=== PATIENT | female | born 1995 ===

== ENCOUNTER 2017-01-10 09:53 | Emergency (ER) | payer OTHER ==
[2017-01-10 09:58] VITALS: O2SAT 100
[2017-01-10] MEDS ORDERED: Iohexol 240 (50 ml) PO STA (10:23)
[2017-01-10] MEDS ORDERED: Sodium Chloride 0.9% 1,000 ML IV STA (10:23)
--- NOTE | 2017-01-10 10:39 | C.PDOC ---
History Of Present Illness 21 y/o female presents to the ED with complains of abdominal pain. Pt reports typically has painful menses with frequent urination. Her last menses ended but still has RLQ abdominal pain. Pt denies fever, nausea, vomiting, diarrhea , or any other complaints. Time Seen by Provider: 01/10/17 10:09 Chief Complaint (Nursing): Abdominal Pain History Per: Patient History/Exam Limitations: no limitations Onset/Duration Of Symptoms: Days Current Symptoms Are (Timing): Still Present Severity: Moderate Location Of Pain/Discomfort: RLQ Quality Of Discomfort: "Pain" Associated Symptoms: denies: Fever, Nausea, Vomiting Exacerbating Factors: None Alleviating Factors: None Recent travel outside of the [place]: No Abnormal Vaginal Bleeding: No Past Medical History Reviewed: Historical Data, Nursing Documentation, Vital Signs Vital Signs: Last Vital Signs Temp 98.5 F 01/10/17 15:49 Pulse 91 H 01/10/17 15:49 Resp 18 01/10/17 15:49 BP 110/74 01/10/17 15:49 Pulse Ox 100 01/10/17 15:49 Family History: States: Unknown Family Hx - Social History Hx Alcohol Use: No Hx Substance Use: No - Immunization History Hx Tetanus Toxoid Vaccination: No Hx Influenza Vaccination: No Review Of Systems Except As Marked, All Systems Reviewed And Found Negative. Constitutional: Negative for: Fever Gastrointestinal: Positive for: Abdominal Pain. Negative for: Nausea, Vomiting , Diarrhea Genitourinary: Negative for: Vaginal Bleeding Physical Exam - Physical Exam Appears: Non-toxic, No Acute Distress Skin: Warm, Dry, No Rash Head: Atraumatic, Normacephalic Neck: Normal ROM, Supple Chest: Symmetrical Cardiovascular: Rhythm Regular, No Murmur Respiratory: Normal Breath Sounds, No Rales, No Rhonchi, No Wheezing Gastrointestinal/Abdominal: Soft, Tenderness (RLQ, LLQ), No Guarding, No Rebound Extremity: Normal ROM Extremity: Bilateral: Atraumatic Neurological/Psych: Oriented x3, Normal Speech, Normal Cognition ED Course And Treatment - Laboratory Results Result Diagrams: 01/10/17 10:39 01/10/17 10:39 O2 Sat by Pulse Oximetry: 100 (on room air) Pulse Ox Interpretation: Normal - CT Scan/US CT abdomen/pelvis Other Rad Studies (CT/US): Read By Radiologist, Radiology Report Reviewed CT/US Interpretation: Accession No. : [id number]. Patient Name / ID : SURAJ PEDERSON / [id number]. Exam Date : 01/10/2017 12:11:00 ( Approved ). Study Comment : Sex / Age : F / 21Y. Creator : Rona Reaves. Dictator : Rona Reaves. Corrosion Control Specialist : Nutrition Faculty Member : Rona Reaves. Approver2 : Report Date : 01/10/2017 13:05:47. My Comment : . PROCEDURE: CT Abdomen and Pelvis with contrast. HISTORY: RLQ pain, guarding/ rebound. COMPARISON: None. TECHNIQUE: Axial and reformatted coronal and sagittal CT images of the abdomen and pelvis were obtained after IV and oral contrast administration. Contrast dose: 100 mL Visipaque 320. Radiation dose: Total exam DLP = 586.05 mGy-cm. This CT exam was performed using one or more of the following dose reduction techniques: Automated exposure control, adjustment of the mA and/or kV according to patient size, and/or use of iterative reconstruction technique. FINDINGS: LOWER THORAX: Unremarkable. LIVER: Unremarkable. No gross lesion or ductal dilatation. GALLBLADDER AND BILE DUCTS: Unremarkable. PANCREAS: Unremarkable. No gross lesion or ductal dilatation. SPLEEN: Unremarkable. ADRENALS: Unremarkable. No mass. KIDNEYS AND URETERS: Unremarkable. No hydronephrosis. No solid mass. VASCULATURE: Unremarkable. No aortic aneurysm. BOWEL: Xzmb-fl-ptxterrt constipation. No evidence of bowel obstruction. Mild gastric wall thickening. Correlate clinically for gastritis. APPENDIX: No CT evidence of appendicitis. PERITONEUM: Unremarkable. No free fluid. No free air. LYMPH NODES: Unremarkable. No enlarged lymph nodes. BLADDER: Unremarkable. REPRODUCTIVE: Unremarkable. BONES: No acute fracture. OTHER FINDINGS: None. IMPRESSION: No evidence of appendicitis. Lmgg-ow-pjmuergf constipation. Mildly enlarged mesenteric lymph nodes suspicious for mesenteric adenitis. Slightly thick gastric wall. Correlate for gastritis. Progress Note: Plan: CT abd/pelvis, labs, UA, IV fluids, morphine. CT is neg for any acute pathology, positive for constipatient. Patient was d/c home on laxatives with Clinic follow up. she was instructed to return to Ed immediately if feel worse. Disposition - Disposition Referrals: [facility] [Outside] Disposition: HOME/ ROUTINE Disposition Time: 15:31 Condition: STABLE Additional Instructions: Follow up in Clinic within 1-2 days. Return to ED if feel worse. Prescriptions: Docusate [Colace] 100 mg PO BID #30 cap Lactulose 30 ml PO DAILY PRN #600 ml PRN Reason: Constipation Instructions: Abdominal Pain (ED), Constipation (ED) Print Language: MARSHALLESE - Clinical Impression Clinical Impression: Abdominal pain, Constipation - PA / SUPERVISOR P[employer]ER[employer] / Resident Statement MD/DO has reviewed & agrees with the documentation as recorded. - Scribe Statement The provider has reviewed the documentation as recorded by the Josemanuel Chapa All medical record entries made by the Josemanuel were at my direction and personally dictated by me. I have reviewed the chart and agree that the record accurately reflects my personal performance of the history, physical exam, medical decision making, and the department course for this patient. I have also personally directed, reviewed, and agree with the discharge instructions and disposition.
[2017-01-10 10:45] LABS: BASO # 0.1 K/uL (0.0-0.2); BASO % 0.5 % (0.0-2.0); EOS # 0.1 K/uL (0.0-0.7); EOS % 0.7 % (0.0-4.0); HEMATOCRIT 36.7 % (34.0-47.0); LYMPH # 2.2 K/uL (1.0-4.3); LYMPH % 22.5 % (20.0-40.0); MEAN CELL VOLUME 86.8 fL (81.0-99.0); MEAN CORPUSCULAR HEMOGLOBIN 28.6 pg (27.0-31.0); MEAN CORPUSCULAR HGB CONC 32.9 g/dL (33.0-37.0); MEAN PLATELET VOLUME 8.5 fL (7.2-11.7); MONO # 0.6 K/uL (0.0-0.8); MONO % 5.7 % (0.0-10.0); RED CELL DISTRIBUTION WIDTH 13.2 % (11.5-14.5)
[2017-01-10 10:46] LABS: RBC URINE < 1 /hpf (0-3); URINE BILIRUBIN NEGATIVE (NEGATIVE); URINE BLOOD NEGATIVE (NEGATIVE); URINE COLOR Yellow (YELLOW); URINE GLUCOSE (UA) NORMAL (Normal); URINE KETONE NEGATIVE (NEGATIVE); URINE LEUKOCYTE ESTERASE NEG Leu/uL (Negative); URINE PROTEIN NEGATIVE (NEGATIVE); URINE UROBILINOGEN NORMAL mg/dL (0.2-1.0); WBC URINE 1 /hpf (0-5)
[2017-01-10] MEDS ORDERED: Iohexol 240 (50 ml) ONE (10:46)
[2017-01-10] MEDS ORDERED: Sodium Chloride 0.9% 1,000 ML ONE (10:50)
[2017-01-10 10:54] LABS: CHLORIDE 94 mmol/L (98-107)
[2017-01-10 10:55] LABS: SODIUM 138 mmol/L (132-148)
[2017-01-10 10:57] LABS: ALB/GLOB RATIO 1.3 (1.0-2.1); ALKALINE PHOSPHATASE 64 U/L (38-126); ALT/SGPT 49 U/L (9-52); AST/SGOT 54 U/L (14-36); BILIRUBIN,TOTAL 0.3 mg/dL (0.2-1.3); BLOOD UREA NITROGEN 12 mg/dL (7-17); CARBON DIOXIDE 27 mmol/L (22-30); GFR AFRICAN-AMERICAN > 60; GLUCOSE,RANDOM 101 mg/dL (65-105); TOTAL PROTEIN 8.3 g/dL (6.3-8.3)
[2017-01-10] MEDS ORDERED: Iodixanol 320 MG/ML 100 ML BOTTLE IV ONE (11:50)
--- NOTE | 2017-01-10 13:07 | CT ---
PROCEDURE: CT Abdomen and Pelvis with contrast HISTORY: RLQ pain, guarding/rebound COMPARISON: None. TECHNIQUE: Axial and reformatted coronal and sagittal CT images of the abdomen and pelvis were obtained after IV and oral contrast administration. Contrast dose: 100 mL Visipaque 320 Radiation dose: Total exam DLP = 586.05 mGy-cm. This CT exam was performed using one or more of the following dose reduction techniques: Automated exposure control, adjustment of the mA and/or kV according to patient size, and/or use of iterative reconstruction technique. FINDINGS: LOWER THORAX: Unremarkable. LIVER: Unremarkable. No gross lesion or ductal dilatation. GALLBLADDER AND BILE DUCTS: Unremarkable. PANCREAS: Unremarkable. No gross lesion or ductal dilatation. SPLEEN: Unremarkable. ADRENALS: Unremarkable. No mass. KIDNEYS AND URETERS: Unremarkable. No hydronephrosis. No solid mass. VASCULATURE: Unremarkable. No aortic aneurysm. BOWEL: Ouer-pl-iknvkche constipation. No evidence of bowel obstruction. Mild gastric wall thickening. Correlate clinically for gastritis. APPENDIX: No CT evidence of appendicitis. PERITONEUM: Unremarkable. No free fluid. No free air. LYMPH NODES: Unremarkable. No enlarged lymph nodes. BLADDER: Unremarkable. REPRODUCTIVE: Unremarkable. BONES: No acute fracture. OTHER FINDINGS: None. IMPRESSION: No evidence of appendicitis. Yyfi-rv-lqpxqnnw constipation. Mildly enlarged mesenteric lymph nodes suspicious for mesenteric adenitis. Slightly thick gastric wall. Correlate for gastritis.
[2017-01-10] MEDS ORDERED: Magnesium Hydroxide Susp 30 ml UD PO STA (13:19)
[2017-01-10] MEDS ORDERED: Magnesium Hydroxide Susp 30 ml UD ONE (13:33)
[2017-01-10 15:51] VITALS: BP 110/74; PULSE 91; RESP 18; TEMP 98.5
== END 2017-01-10 15:51 | disposition home or self-care (01) ==
LOC: C.ER 09:53
DX: K59.00 Constipation, unspecified (principal)
CPT/HCPCS: 74177; 80053; 81001; 83690; 84703; 85025; 96361; 96374; 99285; J2270; J7040; Q9966; Q9967

== ENCOUNTER 2018-05-15 22:20 | Inpatient (IN) | payer MEDICAID, OTHER ==
[2018-05-15 23:03] VITALS: BMI 34.0
[2018-05-15] MEDS ORDERED: Lactated Ringer's 1,000 ML IV ONE ×2 (23:32)
[2018-05-15] MEDS ORDERED: cefOXitin IV 2 gm in Dextrose 2 GM/50 ML BAG IVPB ONE (23:32)
[2018-05-15] MEDS ORDERED: Lactated Ringer's 1,000 ML IV SCH (23:45)
[2018-05-15 23:57] LABS: BASO % 0.3 % (0.0-2.0); EOS # 0.1 K/uL (0.0-0.7); EOS % 0.9 % (0.0-4.0); HEMOGLOBIN 11.5 g/dL (11.0-16.0); LYMPH # 3.2 K/uL (1.0-4.3); LYMPH % 26.9 % (20.0-40.0); MEAN CORPUSCULAR HEMOGLOBIN 30.9 pg (27.0-31.0); MEAN CORPUSCULAR HGB CONC 34.3 g/dL (33.0-37.0); MEAN PLATELET VOLUME 9.9 fL (7.2-11.7); MONO # 0.9 K/uL (0.0-0.8); MONO % 7.1 % (0.0-10.0); NEUT # 7.8 K/uL (1.8-7.0); NEUT % 64.8 % (50.0-75.0); NRBC % 0.1 % (0.0-2.0); RBC 3.73 Mil/uL (3.80-5.20); RED CELL DISTRIBUTION WIDTH 13.9 % (11.5-14.5)
[2018-05-16] MEDS ORDERED: Morphine 1 mg/ml preservative-free Inj(Duramorph) ONE (00:01)
[2018-05-16] MEDS ORDERED: cefOXitin IV 2 gm in Saline 2 GM/50 ML BAG IVPB ONE (00:06)
[2018-05-16 00:11] LABS: SQUAMOUS EPITHIAL 3 /hpf (0-5); URINE BILIRUBIN NEGATIVE (NEGATIVE); URINE BLOOD NEGATIVE (NEGATIVE); URINE CLARITY Clear (Clear); URINE COLOR Yellow (YELLOW); URINE GLUCOSE (UA) NORMAL (Normal); URINE LEUKOCYTE ESTERASE NEG Leu/uL (Negative); URINE PROTEIN NEGATIVE (NEGATIVE); URINE UROBILINOGEN NORMAL mg/dL (0.2-1.0)
[2018-05-16 00:13] LABS: BARBITURATES, UR NEGATIVE (NEGATIVE); BENZODIAZEPINES, UR NEGATIVE (NEGATIVE); OPIATES, UR NEGATIVE (NEGATIVE); PHENCYCLIDINE, UR NEGATIVE (NEGATIVE)
[2018-05-16 00:19] LABS: ALB/GLOB RATIO 1.2 (1.0-2.1); ALBUMIN 4.1 g/dL (3.5-5.0); ALT/SGPT 16 U/L (9-52); AST/SGOT 19 U/L (14-36); BLOOD UREA NITROGEN 7 mg/dL (7-17); CALCIUM 9.3 mg/dl (8.6-10.4); GFR AFRICAN-AMERICAN > 60; GFR NON-AFRICAN AMERICAN > 60
[2018-05-16] MEDS ORDERED: Oxytocin 20 units in LR 2,000 ML IV ONE (00:26)
[2018-05-16 00:50] LABS: HEPATITIS B SURFACE AG Negative (NEGATIVE)
[2018-05-16] MEDS ORDERED: Oxytocin 10 Units/ml Inj ONE (00:56)
[2018-05-16] MEDS ORDERED: DiphenhydrAMINE 50 mg/ml Inj IVP PRN (02:47)
[2018-05-16] MEDS ORDERED: HYDROmorphone 0.5 mg/0.5 ml ISec IVP PRN (02:47)
--- NOTE | 2018-05-16 02:48 | PCM.SURG1 ---
Surgeon's Initial Post Op Note - Surgeon's Notes Surgeon: Belem James MD Storekeeper Steward: Rico Morfin MD Type of Anesthesia: Spinal Anesthesia Administered By: Nilson Wilkins DO Pre-Operative Diagnosis: 36 weeks 2 days, Twin gestation ( Breeech/Breeech), labor; h/o cerclage; previous C/S Operative Findings: Twin A: female, double footling breech; 4lb 14oz, loose nuchal cord x 1; 's 7/9. Twin B: female, Iain breech, 4lb 14oz, 's 4 /9. Normal uterus; normal fallopian tubes and ovaries, bilaterally Post-Operative Diagnosis: Same Operation Performed: Removal of cerclage; repeat LTCS Specimen/Specimens Removed: Placenta Estimated Blood Loss: EBL {In ML}: 800 (U.O. 200 mL; IVFs 2,000 mL LR first 1L with 40 Units pitocin)) Blood Products Given: N/A Drains Used: No Drains Post-Op Condition: Good Date of Surgery/Procedure: 05/16/18 Time of Surgery/Procedure: 02:49
--- NOTE | 2018-05-16 03:23 | OBDS ---
DELIVERY PERSONNEL Nurse Vp Software Support Certified: N/A Delivery Doctor: Josh James MD Scrub Nurse: Enid Rodney OBT Narrow Gauge Operator: Anjelica Cohen RN Anesthesiologist: DR POSEY Tutor: SAME Resident: N/A MATERNAL INFORMATION Delivery Anesthesia: Spinal Medications in Delivery: pitocin 40 units in 1L LR Estimated Blood Loss (ml): 800 Placenta Cultured: Yes Maternal Complications: None Provider Comments: Uncomplcated repeat LTCS with delivery of live twin female infants Twin A: double Footling Breech, breech extraction. LSA position, weight 4lb 14oz, 's 7/9 Twin B: Iain Breech, breech extraction, LSA position, weight 4lb 14oz, 's 4/9 Patient tolerated procedure well. Infant's to [facility] for further montoring. EBL 800mL IVFs 2000mL, 1st llitre wiht 40 units pitocin U.O. 200 mL LABOR SUMMARY EDC: 06/11/2018 00:00 No. Babies in Womb: 2 Attempted: No Labor Anesthesia: None LABOR INFORMATION Reason for Induction: Not Applicable Onset of Labor: 05/15/2018 20:00 Group B Beta Strep: UNKNOWN Antibiotics # of Doses: #1 MEMBRANES Membranes Rupture Method: Artificial Rupture of Membranes: 05/16/2018 01:32 Length of Rupture (hrs): 0.00 Amniotic Fluid Color: Clear Amniotic Fluid Amount: Moderate Amniotic Fluid Odor: Normal STAGES OF LABOR Stage 3 hrs: 0 Stage 3 min: 4 Total Time in Labor hrs: 5 Total Time in Labor min: 36 CSECTION DELIVERY Primary Indication: PREVIOUS C/SECTION X1, IN LABOR Secondary Indication: Multiple Gestation, BREECH PRESENTATION CSection Urgency: Emergency CSection Incidence: Repeat Labor: Labor Elective: N/A CSection Incision: Lower Uterine Transverse BABY A INFORMATION Delivery Date/Time: 05/16/2018 01:32 Method of Delivery: Born in Route : No : N/A Forceps: N/A Vacuum Extraction: N/A Shoulder Dystocia : No SHOULDER DYSTOCIA BABY A Delivery Date/Time: 05/16/2018 01:32 PRESENTATION/POSITION BABY A Presentation: Breech PLACENTA INFORMATION BABY A Placenta Delivery Time : 05/16/2018 01:36 Placenta Method of Delivery: Manual Removal Placenta Status: Delivered SCORES BABY A Heart Rate 1 min: >100 bpm Resp Effort 1 min: Good Cry Reflex Irritability 1 min: Grimace Muscle Tone 1 min: Some Flexion of Extremities Color 1 min: Body [place], Extremities Blue SCORE 1 MIN: 7 Heart Rate 5 min: >100 bpm Resp Effort 5 min: Good Cry Reflex Irritability 5 min: Cough or Sneeze or Pulls Away Muscle Tone 5 min: Active Motion Color 5 min: Body [place], Extremities Blue SCORE 5 MIN: 9 INFORMATION BABY A Gestational Age at Delivery: 36.2 Gestational Status: Outcome : Liveborn Infant Condition : Stable Infant Sex: Female IDENTIFICATION/MEDS BABY A ID Band Number: [id number] ID Band Location: Left Leg; Left Arm Sensor Applied: Yes Sensor Number: [id number] Sensor Location : Cord Clamp Vitamin K Given : Not Given Erythromycin Given: Not Given WEIGHT/LENGTH BABY A Infant Birthweight (gms): 2210 Infant Weight (lb): 4 Infant Weight (oz): 14 Length Inches: 17.25 Infant Length cms: 43.8 CORD INFORMATION BABY A No. Cord Vessels: 3 Nuchal Cord : N/A Cord Blood Taken: Yes Infant Suction: None ASSESSMENT BABY A Infant Complications: Other Infant Complications Other: Physical Findings at Delivery: Within Normal Limits Infant Respirations: Appears Normal Progressive Care Nurse/ALS Called : No Infant Care By: dr odonnell Transferred To: Nursery BABY B INFORMATION Delivery Date/Time: 05/16/2018 01:33 Method of Delivery : Born in Route : No : N/A Forceps : N/A Vacuum Extraction: N/A Shoulder Dystocia : No SHOULDER DYSTOCIA BABY B Infant Delivery Date/Time: 05/16/2018 01:33 PRESENTATION/POSITION BABY B Presentation : Breech Breech Position: Iain ROM/PLACENTA INFO BABY B Rupture of Membranes: 05/16/2018 01:32 Length of Rupture (hrs): 0.02 Placenta Delivery Time : 05/16/2018 01:36 Placenta Method of Delivery: Manual Removal Placental Status : Delivered SCORES BABY B Heart Rate 1 min: >100 bpm Resp Effort 1 min: Absent Reflex Irritability 1 min: No Response Muscle Tone 1 min: Some Flexion of Extremities Color 1 min: Body [place], Extremities Blue Resuscitation Effort 1 min: Tactile Stimulation; Oxygen SCORE 1 MIN: 4 Heart Rate 5 min: >100 bpm Resp Effort 5 min: Good Cry Reflex Irritability 5 min: Cough or Sneeze or Pulls Away Muscle Tone 5 min: Active Motion Color 5 min: Body [place], Extremities Blue SCORE 5 MIN: 9 INFORMATION BABY B Gestational Age at Delivery: 36.2 Gestational Status : Outcome : Liveborn Condition : Fair Sex : Female IDENTIFICATION/MEDS BABY B ID Band Number : [id number] Sensor Number : [id number] WEIGHT/LENGTH BABY B Infant Birthweight (gms): 2210 Infant Weight (lb) : 4 Weight (oz): 14 Infant Length Inches: 17.50 Length cms: 44.45 CORD INFORMATION BABY B No. Cord Vessels : 3 Nuchal Cord : N/A Cord Blood Taken : Yes Infant Suction : Mouth; Nose ASSESSMENT BABY B Infant Complications : Other Complications Other: Physical Findings at Delivery: Within Normal Limits Infant Respirations : Grunting; Intercostal Retractions Progressive Care Nurse/ALS Called : No Infant Care By : dr odonnell Transfer To: [facility] RESUSCITATION BABY B Resuscitation Effort: Tactile Stimulation; Oxygen
[2018-05-16] MEDS ORDERED: DiphenhydrAMINE 50 mg/ml Inj ONE (06:08)
[2018-05-16] MEDS: Simethicone 80 mg Chewtab PO SCH ×3 (09:55→22:59)
--- NOTE | 2018-05-16 15:06 | OP ---
Copied To: Belem James MD Attending MD: Belem James MD PROCEDURE DATE: 05/16/2018 SURGEON: Belem James MD RAMP AGENT: Rico Wetzel MD ANESTHESIOLOGIST: Nilson Wilkins DO ANESTHESIA TYPE: Spinal. PREOPERATIVE DIAGNOSES: A 36 weeks' and 2 days twin gestation, diamnionic- dichorionic, Breech-Breech presentation; labor, history of cerclage; previous Caesarean section. POSTOPERATIVE DIAGNOSES: A 36 weeks and 2 days twin gestation, diamnionic- dichorionic Breech-Breech presentation; labor, history of cerclage; previous Caesarean section. OPERATION PERFORMED: Repeat transverse lower segment Caesarean section. OPERATIVE FINDINGS: Twin A: female in a double footling Breech, left sacrum anterior position, 4 pounds 14 ounces with loose nuchal cord x1. 's were 7 and 9 at 1 and 5 minutes respectively. Twin B: female , Iain breech, left sacrum anterior position 4 pounds 14 ounces. 's were 4 and 9 at 1 and 5 minutes respectively. Normal uterus; normal fallopian tubes and ovaries bilaterally. SPECIMENS: Placenta. ESTIMATED BLOOD LOSS: 800 mL. URINE OUTPUT: 200 mL clear urine. INTRAVENOUS FLUIDS: 2,000 mL of Lactated Ringer. The first 1 liter had 40 units of Pitocin. BLOOD PRODUCTS GIVEN: None. COMPLICATIONS: None. DESCRIPTION OF PROCEDURE: The patient was taken to the operating room after having obtained informed consent for the anticipated procedure. This included a discussion of possible risks and complications including but not limited to infection requiring antibiotics, hemorrhage requiring blood transfusion, repair of any damage to internal organs, Caesarean hysterectomy. The patient's questions were answered. Consents were witnessed, dated, signed, and placed in the chart. The patient received Mefoxin 2 grams prior to being escorted to the operating room. A Harris had been inserted under sterile conditions prior to being escorted to the operating room. The patient was then escorted to the operating room. She was placed on operating room table in sitting position where spinal anesthesia was administered without incident. The patient was repositioned immediately in a supine position. She was then placed in [facility]-cane stirrups in the dorsal lithotomy position for removal of cerclage. This was done under direct visualization and two loops were retrieved apparently. Upon removing the cerclage, the patient was noted to be 3 cm dilated, 70% effaced, and the amniotic sac was palpated. The patient was then repositioned in a supine straight leg position. The abdomen was prepped and she was draped in usual sterile fashion. After assuring an adequate level of anesthesia, using the scalpel, a Pfannenstiel incision was made through the previous scar. The incision was carried down through the subcutaneous tissue using the Bovie electrocautery. The fascia was identified. It was nicked in the midline. The incision was extended bilaterally using Bovie electrocautery. The rectus muscles dissected off the overlying fascia. Using a scalpel, the rectus muscle was in the midline and by sharp dissection, the abdominal cavity was entered. The vesicouterine reflection was identified and the bladder flap was created. A transverse incision was made on the lower uterine segment. Amniotomy was performed and a moderate amount of clear fluid was obtained. The double footling breech was identified and by breech extraction, atraumatic delivery of the twin A as described above ensued. Once on the operative field, the infant's mouth and nose were bulb suctioned and the loose umbilical cord was easily reduced over the head. The umbilical cord was then doubly clamped and cut and the was handed to the mine car dispatcher in attendance. At this time, attention was directed to the amniotic sac of twin B. Amniotomy was performed and again a copious amount of clear amniotic fluid was obtained. The Iain breech was noted with the findings as above. Atraumatic breech extraction was performed and as described with findings of the as described above. Once on the operative field, the 's mouth and nose were bulb suctioned as the umbilical cord was doubly clamped and cut. The was handed off the operative field to the mine car dispatcher in attendance. By manual extraction, the placenta was removed. There were two amniotic sacs and two separate placentae. These were submitted to Pathology for further analysis. The uterus was exteriorized for closure. This was done in 2 layers using #0 Vicryl. The first layer was in a running interlocking fashion and the second layer was in a horizontal imbricating fashion. Adequate hemostasis was assured. Attention was directed to the posterior aspect of the uterus and copious irrigation was performed. Findings of the pelvic viscera were described as above. Attention was then directed to the anterior aspect of the uterus. The bladder flap was reapproximated using 2-0 chromic in a running fashion. The uterus was returned to the abdominal cavity and the paracolic gutters were cleared of all debris. After assuring adequate hemostasis, the parietal peritoneum was reapproximated using 2-0 chromic in a running fashion. The rectus muscle was reapproximated in the midline using 2-0 chromic in a running fashion. The fascia was reapproximated in midline using 1-0 Vicryl in 2 halves. The subcutaneous tissue was reapproximated using #0 plain catgut in a running fashion, and the skin was reapproximated with surgical clips. The patient was then repositioned in a frog-leg manner. Bimanual exploration was performed and the uterus was emptied of additional blood. The uterus was contracted and firm, noted to be approximately one fingerbreadth below the umbilicus. A pressure dressing was applied. The patient was transferred [facility] to [facility] in stable condition. Twins A and B had been transferred to the [facility] for further monitoring. Dr. Rico Morfin was present throughout the entire procedure from beginning to end. His presence was necessary for his expertise in: 1) assuring adequate visualization of the operative field at all times, 2) assuring the safe and atraumatic delivery of the infants, and 3) for assuring adequate hemostasis. Belem James MD ROSE MARY
[2018-05-16 15:43] LABS: RAPID PLASMA REAGIN NONREACTIVE (NONREACTIVE)
[2018-05-16] MEDS: Oxycodone/Acetaminophen 5/325 mg Tab PO PRN (21:03)
[2018-05-17] MEDS: Oxycodone/Acetaminophen 5/325 mg Tab PO PRN ×3 (05:44→22:16)
[2018-05-17 08:20] LABS: HEMOGLOBIN 10.6 g/dL (11.0-16.0); MEAN CELL VOLUME 90.3 fL (81.0-99.0); MEAN CORPUSCULAR HEMOGLOBIN 30.7 pg (27.0-31.0); MEAN PLATELET VOLUME 9.2 fL (7.2-11.7); RBC 3.45 Mil/uL (3.80-5.20); RED CELL DISTRIBUTION WIDTH 13.5 % (11.5-14.5); WHITE BLOOD COUNT 12.8 K/uL (4.8-10.8)
[2018-05-17] MEDS: Prenatal Multivit/Folic Acid/Iron Tab PO SCH (10:32)
[2018-05-17] MEDS: Bisacodyl 5mg EC Tab PO SCH ×2 (10:37→18:45)
[2018-05-17] MEDS: Simethicone 80 mg Chewtab PO SCH ×4 (10:37→22:12)
--- NOTE | 2018-05-17 18:34 | OBPPN ---
Datetime: 05/17/2018 18:19 PP Pain Prov: Within normal limits PP Nausea Prov: Denies PP Flatus Prov: Yes PP BM Prov: Yes PP Breasts Prov: Normal PP Heart Prov: Normal PP Lungs Prov: Normal PP Abdomen/Uterus Prov: Normal PP Lochia Prov: Normal PP Vulva/Perineum Prov: Not Done PP CVA Tenderness Prov: Normal PP Extremities Prov: Normal PP C/S Incision Prov: Normal PP Progress Prov: Normal PP Comments Phys Exam Prov: Breasts: no cracked nipples Abdomen: (+) BS. Soft. Non distended. Fundus firm, moblie, appropriately tender. Incision with sta ples - clean, dry and intact. Mild lochia rubra Extremities: no calf tenderness All other systems reviewed and are negative. PP Impression Prov: Normal progression PP Plan Prov: Continue present management PP Progress Note Prov: Patient is predomnantly Danish-speaking; translationprovided by Dr. Keith jacob Patient evaluated earlier thismoring; received in room 459 sitting up in chair. Patient in good sp irits: her twins, with ann e bottle.. Deines headaches, dizziness, lightheadedness; rosy sea or vomiting. Ambulating and voiding without difficulty. reports gas pains. P.E.: as above. Short, in NAD. Awake, alert, oriented to time, person and place. Pleasant and clinical education coordinator perative. FOB present - POD#1 H/H 10.6/31.2 Assessment: POD#1, , S/P repeat LTCS at 36w 2d, twin gestation, Breech/Breech in labor. Afebrile, vital signs stable. Retruning and GI functions. Anemia noted; asymptomatic and h emodynamically stable. Patient is clinically stable. Plan: 1) Continue post op care 2) encourage ambulation Vital Signs Provider PP: Reviewed; Within Normal Limits
[2018-05-18 00:20] VITALS: O2SAT 98
[2018-05-18 08:21] VITALS: RESP 18
[2018-05-18] MEDS: Bisacodyl 5mg EC Tab PO SCH ×2 (10:56→17:29)
[2018-05-18] MEDS: Prenatal Multivit/Folic Acid/Iron Tab PO SCH (10:56)
[2018-05-18] MEDS: Simethicone 80 mg Chewtab PO SCH ×4 (10:56→21:26)
[2018-05-18] MEDS: Oxycodone/Acetaminophen 5/325 mg Tab PO PRN ×2 (10:57→16:56)
--- NOTE | 2018-05-19 07:56 | OBDCSUM ---
Datetime: 05/19/2018 07:54 Discharged to, Provider: Home Follow up at, Provider: clinic Disch Instr Activity: Normal activity Disch Instr Diet: Regular Discharge Instructions, Provider: Routine instructions given Discharge Diagnosis, Provider: Term Delivered Discharge Time: 05/19/2018 07:54 Follow up in weeks, Provider: 1 week Disch Referrals: None Contraception discussed, Prov: Yes Disch Activity Restrictions: No sexual activity; Nothing in vagina - [place], tampons, douche Discharge Comment, Provider: Incisicon check. if high blodo puresusre, heavy vaginal bleeidng more t centeno 2 pads/ hour, lightheands,s dizyznes, chste pain , shortness of breath go to nearest ER Contraception after Delivery: Not Planning to Use
--- NOTE | 2018-05-19 07:56 | OBPPN ---
Datetime: 05/19/2018 07:53 PP Pain Prov: Within normal limits PP Nausea Prov: Denies PP Flatus Prov: Yes PP Breasts Prov: Normal PP Heart Prov: Normal PP Lungs Prov: Normal PP Abdomen/Uterus Prov: Normal PP Lochia Prov: Normal PP Vulva/Perineum Prov: Normal PP CVA Tenderness Prov: Normal PP Extremities Prov: Normal PP C/S Incision Prov: Normal PP Progress Prov: Normal PP Impression Prov: Normal progression PP Plan Prov: Continue present management PP Progress Note Prov: pt seen and examiend adn reprots pain controlled with medication. pt is ambul ating, voidng passing flatus, tolerating regular diet. pt denies any fevers, chills, nause, vomiting, cp, sob, bowel or bladder complaints. Pt is breast feeding and denies any feelings of sadness or dep ression. VSS PE: GEN NAD AAO x 3 BREAST: NT, Non engorged b/l CVS:RRR< +S1/S2 ABS: Soft, NT, nd , no guarding no rebound tenderness no rigidity, +BS FUNDUS: Firm below level of umbilicus INCISCION C/?DI healing well VE: minimal lochia, non foul smelling EXT: negative homans sign, no calf tendeness A/P s/p CxS POD #3 doing well dc home return to [facility] 1 week precauting iven IP PP Procedures: None Vital Signs Provider PP: Reviewed; Within Normal Limits Datetime: 05/18/2018 11:45 PP BM Prov: Yes Vital Signs Provider Details PP: Fundus firm and below umbilicus
[2018-05-19 09:08] VITALS: BP 113/68; PULSE 83; TEMP 97.7
[2018-05-19] MEDS: Prenatal Multivit/Folic Acid/Iron Tab PO SCH (09:34)
[2018-05-19] MEDS: Simethicone 80 mg Chewtab PO SCH (09:34)
[2018-05-19] MEDS: Bisacodyl 5mg EC Tab PO SCH (09:35)
== END 2018-05-19 12:00 | disposition home or self-care (01) | DRG 765 ==
LOC: C.EROB 22:20 → C.4D 23:30 → C.4M 05-16 06:30
PROVIDERS: ADMIT Obstetrics & Gynecology; ATTEND Obstetrics & Gynecology
PROC: 10D00Z1 Extraction of Products of Conception, Low, Open Approach (ICD-10-PCS; principal; 2018-05-16)
DX: O69.81X1 Labor and delivery complicated by cord around neck, without compression, fetus 1 (principal); O60.14X0 Preterm labor third trimester with preterm delivery third trimester, not applicable or unspecified; O30.043 Twin pregnancy, dichorionic/diamniotic, third trimester; Z37.2 Twins, both liveborn; Z3A.36 36 weeks gestation of pregnancy; O32.1XX2 Maternal care for breech presentation, fetus 2; O34.211 Maternal care for low transverse scar from previous cesarean delivery; O99.02 Anemia complicating childbirth